=== PATIENT | female | born 2000 | race Caucasian/White ===

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

== ENCOUNTER 2022-05-19 17:55 | Emergency (ER) | payer OTHER ==
[2022-05-19 18:16] VITALS: BP 106/71; PULSE 80; RESP 18; TEMP 99; BMI 20.7
[2022-05-19] MEDS ORDERED: ALBUTEROL SO4 2.5/IPRATROPIUM 0.5 INH SOL 3 ML VIAL.NEB. NEB ONE ×2 (18:18→18:21)
== END 2022-05-19 18:46 | disposition home or self-care (01) ==
LOC: FER 17:55
PROC: 3E0F7GC Introduction of Other Therapeutic Substance into Respiratory Tract, Via Natural or Artificial Opening (ICD-10-PCS; principal; 2022-05-19)
DX: R05.9 Cough, unspecified (principal)
CPT/HCPCS: 0241U-QW; 99283-25

== ENCOUNTER 2023-03-05 19:24 | Emergency (ER) | payer OTHER ==
[2023-03-05 19:36] VITALS: BP 122/73; PULSE 80; RESP 16; TEMP 99; BMI 20.8
[2023-03-05] MEDS ORDERED: ACETAMINOPHEN 500 MG TABLET (FP) PO ONE (20:13)
[2023-03-05] MEDS ORDERED: ACETAMINOPHEN 500 MG TABLET (FP) ONE (20:16)
== END 2023-03-05 20:20 | disposition home or self-care (01) ==
LOC: FER 19:24
DX: R05.9 Cough, unspecified (principal); R09.81 Nasal congestion; J06.9 Acute upper respiratory infection, unspecified; B97.89 Other viral agents as the cause of diseases classified elsewhere; Z20.822 Contact with and (suspected) exposure to COVID-19
CPT/HCPCS: 0241U-QW; 99283-25

== ENCOUNTER 2024-12-20 13:25 | Inpatient (IN) | payer OTHER ==
[2024-12-20] MEDS: ELECTROLYTE-148 SOLN 1,000 ML IV SCH (14:15)
[2024-12-20] MEDS ORDERED: FENTANYL/BUPIVACAINE/NS/PF - PCEA - 50 ML DISP.SYRIN EP ONE ×2 (15:01→18:26)
[2024-12-20] MEDS ORDERED: FENTANYL CITRATE/PF 50 MCG/ML VIAL ONE (15:08)
[2024-12-20] MEDS ORDERED: BUPIVACAINE HCL/PF 0.25% (2.5MG/ML) 10 ML VIAL ONE (15:09)
[2024-12-20 15:23] LABS: ABSOLUTE IMMATURE GRANULOCYTES 0.09 x10^3/uL (0.0-0.031); BASOPHILS # 0.03 x10^3/uL (0.01-0.08); EOSINOPHIL % 0.1 % (0.7-5.8); EOSINOPHILS # 0.01 x10^3/uL (0.04-0.36); MCHC 31.7 g/dl (32.2-35.5); MEAN CELL VOLUME 95.1 fl (79.4-94.8); MEAN PLT VOLUME 11.7 fl (9.4-12.3); MONOCYTE # 0.78 x10^3/uL (0.24-0.86); MONOCYTE % 5.1 % (4.7-12.5); RDW 13.1 % (12.1-16.5)
[2024-12-20] MEDS ORDERED: NALOXONE HCL 0.4 MG/ML VIAL IVPUSH PRN (15:24)
[2024-12-20] MEDS ORDERED: PROMETHAZINE HCL 25 MG/1 ML VIAL IVPB PRN (15:25)
[2024-12-20 15:30] LABS: INR 0.93 (0.83-1.09); PROTHROMBIN TIME (PATIENT) 10.1 SEC (9.7-13.0)
[2024-12-20] MEDS: FENTANYL/BUPIVACAINE/NS/PF - PCEA - 50 ML DISP.SYRIN EP SCH (15:30)
[2024-12-20 15:33] LABS: ACTIVATED PTT 25.4 SECONDS (25.2-36.5)
[2024-12-20 15:43] LABS: GLUCOSE,RANDOM 79 mg/dL (74-106)
[2024-12-20 15:44] LABS: CO2 18 mmol/L (21-32)
[2024-12-20 15:48] LABS: CREATININE 0.68 mg/dL (0.55-1.3)
[2024-12-20 15:58] VITALS: BMI 24.7
[2024-12-20 16:10] LABS: SYPHILIS W/ RPR CONF NON-REACTIVE (NONREACTIVE)
[2024-12-20 17:05] LABS: HCV DIAGNOSTIC IN-HOUSE W/RFLX NON-REACTIVE (NONREACTIVE)
[2024-12-20] MEDS ORDERED: OXYTOCIN 20 UNITS in 0.9% NS 20 UNIT/1,000 ML INFUS.BAG IV ONE (19:27)
[2024-12-20] MEDS: OXYTOCIN 20 UNITS in 0.9% NS 20 UNIT/1,000 ML INFUS.BAG IV SCH (19:35)
[2024-12-20] MEDS ORDERED: BENZOCAINE 28 GM HEMORRHOIDAL OINTMENT TP PRN (19:43)
[2024-12-20] MEDS ORDERED: BENZOCAINE 20% 57 GM BOTTLE TP PRN (19:43)
[2024-12-20] MEDS ORDERED: BISACODYL 10 MG SUPP.RECT RC PRN (19:43)
[2024-12-20] MEDS ORDERED: METHYLERGONOVINE MALEATE 0.2 MG/1 ML AMP IM PRN (19:43)
[2024-12-20] MEDS ORDERED: WITCH HAZEL 50% (TUCKS) 40 PAD/JAR PAD TP PRN (19:43)
[2024-12-20 20:19] LABS: CORD BASE EXCESS -1.8 mmol/L (0-2); CORD BASE EXCESS -2.5 mmol/L (0-2); CORD HCO3 22.5 mmHg (20-29); CORD HCO3 22.7 mmHg (20-29); CORD PCO2 38.1 mmHg (30-78); CORD PCO2 39.7 mmHg (30-78); CORD pH 7.371 (7.14-7.44); CORD pH 7.393 (7.14-7.44)
[2024-12-20] MEDS: BUTORPHANOL TARTRATE 2 MG/ML VIAL IVPB ONE (22:16)
[2024-12-21 02:11] VITALS: RESP 18
[2024-12-21] MEDS: IBUPROFEN 600 MG TABLET (FP) PO PRN (07:07)
[2024-12-21 07:19] LABS: ABSOLUTE IMMATURE GRANULOCYTES 0.06 x10^3/uL (0.0-0.031); BASOPHILS # 0.02 x10^3/uL (0.01-0.08); EOSINOPHIL % 0.2 % (0.7-5.8); EOSINOPHILS # 0.03 x10^3/uL (0.04-0.36); MCHC 31.6 g/dl (32.2-35.5); MEAN CELL VOLUME 96.8 fl (79.4-94.8); MEAN PLT VOLUME 11.6 fl (9.4-12.3); MONOCYTE # 0.90 x10^3/uL (0.24-0.86); MONOCYTE % 7.0 % (4.7-12.5); RDW 13.2 % (12.1-16.5)
[2024-12-21] MEDS: FERROUS SO4 325 MG TABLET (FP) PO SCH (08:16)
[2024-12-21] MEDS: PRENATAL VITAMINS W/ FOLIC ACID TABLET (FP) PO SCH (10:40)
[2024-12-21] MEDS: ACETAMINOPHEN 325 MG TABLET (FP) PO PRN (20:50)
[2024-12-21] MEDS: SENNOSIDES/DOCUSATE COMBO (SENNA PLUS) TABLET (UD) PO PRN (20:50)
[2024-12-22] MEDS: DEXMETHYLPHENIDATE 15 MG PO SCH (09:20)
[2024-12-22 09:41] VITALS: BP 125/89; PULSE 95; TEMP 97.9
== END 2024-12-22 12:15 | disposition home or self-care (01) | DRG 560 ==
LOC: JDEL 13:25 → JLDR 13:55 → J3W 22:07
PROVIDERS: ADMIT Obstetrics & Gynecology; ATTEND Obstetrics & Gynecology
PROC: 10E0XZZ Delivery of Products of Conception, External Approach (ICD-10-PCS; principal; 2024-12-20)
DX: O80 Encounter for full-term uncomplicated delivery (principal); Z3A.39 39 weeks gestation of pregnancy; Z37.0 Single live birth
CPT/HCPCS: 36415; 36600; 59025; 59409; 80048; 82803; 85025; 85610; 85730; 86780; 86803; 86850; 86900; 86901